=== PATIENT | female | born 1950 | race Caucasian/White ===

== ENCOUNTER → 2018-04-10 | Day surgery (SDC) | payer OTHER ==
[~2018-04-10] VITALS: Ht 157.5 cm; Wt 79.4 kg
[~2018-04-10] MED LIST: ASPIRIN EC81 M1 PO; CALTRATE 600 +1 EAC1 PO; CENTRUM SILVER1 EAC3 PO; CINNAMON500 M1 PO; COZAAR25 M1 PO; CRANBERRY425 MG PO; CYMBALTA20 M1 PO; CYTOMEL5 MCG PO; FISH OIL 1,0001 EAC5 PO; LIPITOR20 M2 PO; LORAZEPAM0.5 M1 PO; MUCINEX600 M1 PO; PROBIOTIC1 EACH PO; PROLIA60 MG/1 ML INJ; SYNTHROID50 MCG PO; VICTOZA 2-0.6 MG/0.1 SC; VITAMIN D2000 UNIT PO
--- NOTE | 2018-04-10 10:52 | Operative Report ---
Operative/Inv Procedure Report Surgery Date: 04/10/18 Name of Procedure: right ESWL Pre-Operative Diagnosis: right renal stone Post-Operative Diagnosis: same Estimated Blood Loss: scant Surgeon/Pattern Assembler: Bonnie Flower MD Anesthesia: local monitored anesthesi Complications: none Condition: stable Operative Indication: right renal stone Operative/Procedure Note Note: 67yo female with a hx of recurrent UTIs recently and has been treated with multiple rounds of po abx (CIpro, Macrobid and Cipro). She is finally feeling better now. She does admit to some right flank pain and SP pressure. She has a hx of kidney stones starting in 2004 and has had ESWL and URS in the past. SHe wished to have it addressed with ESWL given its size and location. SHe was given the risks, benefits and alternatives and all questions answered. Consent was signed in the holding area. Patient was marked on the right side for the side of surgery. Patient was brought to the operating room and placed in the supine position. Time out was performed. IV antibiotics were infused. Renal US was performed. She was found to have a large stone in the renal pelvis almost 1cm in size. She was optimally positioned. US and flouroscopy was performed. At a power of 1-20 ramping up to 20 with a total of 2500 shocks. Patient's stone was nicely fragmented so that that it was no longer visible. She tolerated the procedure well. She was transferred to the recovery room in stable condition. Findings: right renal stone well fragmented Discharge Disposition: Same Day Admissions
== END ==
LOC: STS 05:20
DX: N20.0 Calculus of kidney (principal); N39.0 Urinary tract infection, site not specified; Z87.442 Personal history of urinary calculi; N39.3 Stress incontinence (female) (male); E11.9 Type 2 diabetes mellitus without complications; E03.9 Hypothyroidism, unspecified; Z79.84 Long term (current) use of oral hypoglycemic drugs
CPT/HCPCS: 93005; 93010; J0690